=== PATIENT | male | born 2000 ===

== ENCOUNTER 2024-09-19 16:38 | Emergency (ER) | payer BC ==
[2024-09-19 16:44] VITALS: BP 133/85; PULSE 67
== END 2024-09-19 17:20 | disposition home or self-care (01) ==
LOC: MERGE 16:38 → LL.ED 16:38
DX: T62.8X1A Toxic effect of other specified noxious substances eaten as food, accidental (unintentional), initial encounter (principal); R10.84 Generalized abdominal pain; R11.2 Nausea with vomiting, unspecified
CPT/HCPCS: 99283